=== PATIENT | male | born 1995 | race Caucasian/White ===

== ENCOUNTER 2018-11-14 17:39 | Emergency (ER) | payer OTHER, SELFPAY ==
[2018-11-14 17:51] VITALS: BP 119/74; PULSE 70; RESP 14; TEMP 36.7; O2SAT 99; BMI 26.9
--- NOTE | 2018-11-14 17:57 | DI.RAD.S_ITS ---
PROCEDURE: XR HAND RT MIN 3V INDICATIONS: pain after hitting weight bench. TECHNIQUE: 3 views of the hand(s) acquired. COMPARISON: [facility], , HAND 2V RIGHT, 02/25/2015, 0:37. FINDINGS: Bones: There is a small bony fragment adjacent to the proximal 5th metacarpal.. Carpal bones are normally aligned. No suspicious bony lesions. Soft tissues: No suspicious soft tissue calcifications. IMPRESSION: Small age-indeterminate fracture fragment adjacent to the proximal 5th metacarpal. Dictated by: Lyle Schmitt M.D. on 11/14/2018 at 18:10 Approved by: Lyle Schmitt M.D. on 11/14/2018 at 18:11
[2018-11-14] MEDS: KETOROLAC 60 MG/2 ML VIAL IM (18:14)
[2018-11-14 19:41] VITALS: BP 135/91; PULSE 61; RESP 15; O2SAT 97
--- NOTE | 2018-11-14 20:41 | ED.UPPEXIN ---
HPI - Extremity Injury (Upper) <ZAINA Gallegos - Last Filed: 11/14/18 20:46> General Chief Complaint: Extremity Injury, Upper Stated Complaint: RT HAND INJURY Time Seen by Provider: 11/14/18 18:08 Source: patient Mode of arrival: ambulatory Limitations: no limitations History of Present Illness HPI narrative: The patient is a 23-year-old male nonsmoker presents with his friends for chief complaint of a hand injury on his right hand. He states he broke his right hand several years ago, and he is concerned that he broke it again. He states he hit his hand on a weight rack. He has applied ice. He has not taken anything for the pain. He states this occurred earlier today. Related Data Home Medications Medication Instructions Recorded Confirmed ibuprofen 200 mg PO Q6H PRN 11/14/18 11/14/18 Allergies Allergy/AdvReac Type Severity Reaction Status Date / Time No Known Drug Allergies Allergy Verified 11/14/18 17:54 Review of Systems <ZAINA Gallegos - Last Filed: 11/14/18 20:46> Review of Systems GENERAL: Denies chills, fatigue, malaise, fever, sweats. HEENT: Denies sinus pain, ear pain, sore throat, difficulty swallowing, dizziness. RESPIRATORY: Denies dyspnea, cough, wheezing, hemoptysis, sputum. : Denies dysuria, frequency, incontinence, hematuria, urinary retention. MUSCULOSKELETAL: See HPI SKIN: Denies rash, skin lesions, or other NEUROLOGIC: Denies weakness, headache, numbness, change in speech, confusion, seizures, incoordination. PSYCHIATRIC: No concerning psychosocial issues. 12 point review of systems is negative except for those stated above PFSH <ZAINA Gallegos - Last Filed: 11/14/18 20:46> Medical History Right hand fracture (Acute) Social History Smoking Status: Never smoker Social History Smoking Status: Never smoker Exam <ZAINA Gallegos - Last Filed: 11/14/18 20:46> Narrative Exam Narrative: GENERAL: This is a well-nourished, well-developed patient, in mild distress. HEAD: Atraumatic. Normocephalic. No temporal or scalp tenderness. EYES: Pupils equal round and reactive. Extraocular motions intact. No scleral icterus. No injection or drainage. ENT: Nose without bleeding, purulent drainage or septal hematoma. Throat without erythema, tonsillar hypertrophy or exudate. Uvula midline. Airway patent. NECK: Trachea midline. No JVD or lymphadenopathy. Supple, nontender, no meningeal signs. CARDIOVASCULAR: Regular rate and rhythm RESPIRATORY: No cough. No increased respiratory effort. No accessory muscle use. EXTREMITIES: Pain to palpation at the base of the right 5th digit. Slight swelling noted. Positive radial pulse right hand. Capillary refill less than 2 seconds all fingers right hand. NEURO: AOx3. SKIN: No abrasion, laceration noted right hand Initial Vital Signs Initial Vital Signs: Vital Signs Temperature 98.1 F 11/14/18 17:51 Pulse Rate 70 11/14/18 17:51 Respiratory Rate 14 11/14/18 17:51 Blood Pressure 119/74 11/14/18 17:51 Pulse Oximetry 99 11/14/18 17:51 <Hipolito Bianchi DO - Last Filed: 11/15/18 00:09> Initial Vital Signs Initial Vital Signs: Vital Signs Temperature 98.1 F 11/14/18 17:51 Pulse Rate 70 11/14/18 17:51 Respiratory Rate 14 11/14/18 17:51 Blood Pressure 119/74 11/14/18 17:51 Pulse Oximetry 99 11/14/18 17:51 Procedures <ZAINA Gallegos - Last Filed: 11/14/18 20:46> Orthopedic Splinting/Casting Injury #1: Side: right Upper Extremity Injury Location: hand Upper Extremity Immobilizer: volar splint (Lateral) and Jovany wrap Post splinting neuro exam: intact Post splinting vascular exam: intact Placed by: Nursing Course <ZAINA Gallegos - Last Filed: 11/14/18 20:46> Orders Ordered: ED Orders 11/14/18 17:57 XR hand RT min 3V Stat Discontinued Medications Ketorolac Tromethamine (Toradol) 60 mg IM NOW ONE Stop: 11/14/18 18:11 Last Admin: 11/14/18 18:14 Dose: 60 mg Vital Signs - 8 hr 11/14/18 17:51 11/14/18 19:41 Temperature 98.1 F Pulse Rate 70 61 Respiratory Rate 14 15 Blood Pressure 119/74 Blood Pressure [Left Arm] 135/91 H Pulse Oximetry 99 97 <Hipolito Bianchi DO - Last Filed: 11/15/18 00:09> Orders Ordered: ED Orders 11/14/18 17:57 XR hand RT min 3V Stat Discontinued Medications Ketorolac Tromethamine (Toradol) 60 mg IM NOW ONE Stop: 11/14/18 18:11 Last Admin: 11/14/18 18:14 Dose: 60 mg Vital Signs - 8 hr 11/14/18 17:51 11/14/18 19:41 Temperature 98.1 F Pulse Rate 70 61 Respiratory Rate 14 15 Blood Pressure 119/74 Blood Pressure [Left Arm] 135/91 H Pulse Oximetry 99 97 MDM - Extremity Injury (Upper) <ZAINA Gallegos - Last Filed: 11/14/18 20:46> Imaging Data Right hand x-ray: Radiologist's impression: [address] [address] XRay Report Signed Patient: Sally Trevizo#: [id number] : 1995Acct:[id number] Age/Sex: 23 / MDate of Service: 11/14/18 Loc: ED Accession Number: [id number] Procedure: XR hand RT min 3V Ordering Provider: Hipolito Bianchi D.O. PROCEDURE: XR HAND RT MIN 3V INDICATIONS: pain after hitting weight bench. TECHNIQUE: 3 views of the hand(s) acquired. COMPARISON: [facility], , HAND 2V RIGHT, 02/25/2015, 0:37. FINDINGS: Bones: There is a small bony fragment adjacent to the proximal 5th metacarpal.. Carpal bones are normally aligned. No suspicious bony lesions. Soft tissues: No suspicious soft tissue calcifications. IMPRESSION: Small age-indeterminate fracture fragment adjacent to the proximal 5th metacarpal. Dictated by: Lyle Schmitt M.D. on 11/14/2018 at 18:10 Approved by: Lyle Schmitt M.D. on 11/14/2018 at 18:11 MDM Narrative Medical decision making narrative: The patient is a 23-year-old male who presents with a chief complaint of right hand pain after hitting a weight bench. He is neurovascularly intact. Does have a history of a fracture on that hand. X-ray shows a adjacent to the proximal 5th metacarpal. This is not where his previous fracture was that was at the 4th digit and angulated with no chip. This would like to treated as a new fracture given his recent injury. He was placed in a lateral volar splint. Discussed at length follow up with his primary care provider as well as [facility]. Discussed rest ice compression elevation as well as [id number] pain medications as needed and able. Patient has no questions or concerns upon discharge. Did discuss come back to ER for any acute concerns such as decreased circulation to fingers. Discharge Plan Departure Patient Disposition: Home Clinical Impression: Closed fracture of base of fifth metacarpal bone Qualifiers: Encounter type: initial encounter Fracture alignment: nondisplaced Laterality: right Qualified Code(s): S62.346A - Nondisplaced fracture of base of fifth metacarpal bone, right hand, initial encounter for closed fracture Discharge Date/Time: 11/14/18 20:15 Interventions: ED Discharge Assessment Last Done: 11/14/18 20:15 Instructions: How To Perform RICE (Rest, Ice, Compress, Elevate), Hand Fracture Activity Restrictions/Additional Instructions: Unfortunately you have a small fracture at the base of your 5th finger. We have placed him in a splint. Please use rest ice compression elevation as well as [id number] medications as needed. Please follow-up with [facility]. Please come back to emergency department for any acute concerns. Prescriptions: No Action ibuprofen 200 mg Capsule 200 mg PO Q6H PRN (Reason: Pain (Scale Score 1-3)) RF: 0 Referrals: [facility] [Provider Group] <Hipolito Bianchi DO - Last Filed: 11/15/18 00:09> Cosign ED Attending Deisyature Attestation: Patient received in sign-out from other provider at the end of their shift. I have performed an independent history and physical and have no significant additional findings.
--- NOTE | 2018-11-14 20:46 | ED_ITS ---
HPI - Extremity Injury (Upper) <ZAINA Gallegos - Last Filed: 11/14/18 20:46> General Chief Complaint: Extremity Injury, Upper Stated Complaint: RT HAND INJURY Time Seen by Provider: 11/14/18 18:08 Source: patient Mode of arrival: ambulatory Limitations: no limitations History of Present Illness HPI narrative: The patient is a 23-year-old male nonsmoker presents with his friends for chief complaint of a hand injury on his right hand. He states he broke his right hand several years ago, and he is concerned that he broke it again. He states he hit his hand on a weight rack. He has applied ice. He has not taken anything for the pain. He states this occurred earlier today. Related Data Home Medications Medication Instructions Recorded Confirmed ibuprofen 200 mg PO Q6H PRN 11/14/18 11/14/18 Allergies Allergy/AdvReac Type Severity Reaction Status Date / Time No Known Drug Allergies Allergy Verified 11/14/18 17:54 Review of Systems <ZAINA Gallegos - Last Filed: 11/14/18 20:46> Review of Systems GENERAL: Denies chills, fatigue, malaise, fever, sweats. HEENT: Denies sinus pain, ear pain, sore throat, difficulty swallowing, dizziness. RESPIRATORY: Denies dyspnea, cough, wheezing, hemoptysis, sputum. : Denies dysuria, frequency, incontinence, hematuria, urinary retention. MUSCULOSKELETAL: See HPI SKIN: Denies rash, skin lesions, or other NEUROLOGIC: Denies weakness, headache, numbness, change in speech, confusion, seizures, incoordination. PSYCHIATRIC: No concerning psychosocial issues. 12 point review of systems is negative except for those stated above PFSH <ZAINA Gallegos - Last Filed: 11/14/18 20:46> Medical History Right hand fracture (Acute) Social History Smoking Status: Never smoker Social History Smoking Status: Never smoker Exam <ZAINA Gallegos - Last Filed: 11/14/18 20:46> Narrative Exam Narrative: GENERAL: This is a well-nourished, well-developed patient, in mild distress. HEAD: Atraumatic. Normocephalic. No temporal or scalp tenderness. EYES: Pupils equal round and reactive. Extraocular motions intact. No scleral icterus. No injection or drainage. ENT: Nose without bleeding, purulent drainage or septal hematoma. Throat without erythema, tonsillar hypertrophy or exudate. Uvula midline. Airway patent. NECK: Trachea midline. No JVD or lymphadenopathy. Supple, nontender, no meningeal signs. CARDIOVASCULAR: Regular rate and rhythm RESPIRATORY: No cough. No increased respiratory effort. No accessory muscle use. EXTREMITIES: Pain to palpation at the base of the right 5th digit. Slight swelling noted. Positive radial pulse right hand. Capillary refill less than 2 seconds all fingers right hand. NEURO: AOx3. SKIN: No abrasion, laceration noted right hand Initial Vital Signs Initial Vital Signs: Vital Signs Temperature 98.1 F 11/14/18 17:51 Pulse Rate 70 11/14/18 17:51 Respiratory Rate 14 11/14/18 17:51 Blood Pressure 119/74 11/14/18 17:51 Pulse Oximetry 99 11/14/18 17:51 <Hipolito Bianchi DO - Last Filed: 11/15/18 00:09> Initial Vital Signs Initial Vital Signs: Vital Signs Temperature 98.1 F 11/14/18 17:51 Pulse Rate 70 11/14/18 17:51 Respiratory Rate 14 11/14/18 17:51 Blood Pressure 119/74 11/14/18 17:51 Pulse Oximetry 99 11/14/18 17:51 Procedures <ZAINA Gallegos - Last Filed: 11/14/18 20:46> Orthopedic Splinting/Casting Injury #1: Side: right Upper Extremity Injury Location: hand Upper Extremity Immobilizer: volar splint (Lateral) and Jovany wrap Post splinting neuro exam: intact Post splinting vascular exam: intact Placed by: Nursing Course <ZAINA Gallegos - Last Filed: 11/14/18 20:46> Orders Ordered: ED Orders 11/14/18 17:57 XR hand RT min 3V Stat Discontinued Medications Ketorolac Tromethamine (Toradol) 60 mg IM NOW ONE Stop: 11/14/18 18:11 Last Admin: 11/14/18 18:14 Dose: 60 mg Vital Signs - 8 hr 11/14/18 17:51 11/14/18 19:41 Temperature 98.1 F Pulse Rate 70 61 Respiratory Rate 14 15 Blood Pressure 119/74 Blood Pressure [Left Arm] 135/91 H Pulse Oximetry 99 97 <Hipolito Bianchi DO - Last Filed: 11/15/18 00:09> Orders Ordered: ED Orders 11/14/18 17:57 XR hand RT min 3V Stat Discontinued Medications Ketorolac Tromethamine (Toradol) 60 mg IM NOW ONE Stop: 11/14/18 18:11 Last Admin: 11/14/18 18:14 Dose: 60 mg Vital Signs - 8 hr 11/14/18 17:51 11/14/18 19:41 Temperature 98.1 F Pulse Rate 70 61 Respiratory Rate 14 15 Blood Pressure 119/74 Blood Pressure [Left Arm] 135/91 H Pulse Oximetry 99 97 MDM - Extremity Injury (Upper) <ZAINA Gallegos - Last Filed: 11/14/18 20:46> Imaging Data Right hand x-ray: Radiologist's impression: [address] [address] XRay Report Signed Patient: Sally Trevizo#: [id number] : 1995Acct:[id number] Age/Sex: 23 / MDate of Service: 11/14/18 Loc: ED Accession Number: [id number] Procedure: XR hand RT min 3V Ordering Provider: Hipolito Bianchi D.O. PROCEDURE: XR HAND RT MIN 3V INDICATIONS: pain after hitting weight bench. TECHNIQUE: 3 views of the hand(s) acquired. COMPARISON: [facility], , HAND 2V RIGHT, 02/25/2015, 0:37. FINDINGS: Bones: There is a small bony fragment adjacent to the proximal 5th metacarpal.. Carpal bones are normally aligned. No suspicious bony lesions. Soft tissues: No suspicious soft tissue calcifications. IMPRESSION: Small age-indeterminate fracture fragment adjacent to the proximal 5th metacarpal. Dictated by: Lyle Schmitt M.D. on 11/14/2018 at 18:10 Approved by: Lyle Schmitt M.D. on 11/14/2018 at 18:11 MDM Narrative Medical decision making narrative: The patient is a 23-year-old male who presents with a chief complaint of right hand pain after hitting a weight bench. He is neurovascularly intact. Does have a history of a fracture on that hand. X-ray shows a adjacent to the proximal 5th metacarpal. This is not where his previous fracture was that was at the 4th digit and angulated with no chip. This would like to treated as a new fracture given his recent injury. He was placed in a lateral volar splint. Discussed at length follow up with his primary care provider as well as [facility]. Discussed rest ice compression elevation as well as [id number] pain medications as needed and able. Patient has no questions or concerns upon discharge. Did discuss come back to ER for any acute concerns such as decreased circulation to fingers. Discharge Plan Departure Patient Disposition: Home Clinical Impression: Closed fracture of base of fifth metacarpal bone Qualifiers: Encounter type: initial encounter Fracture alignment: nondisplaced Laterality: right Qualified Code(s): S62.346A - Nondisplaced fracture of base of fifth metacarpal bone, right hand, initial encounter for closed fracture Discharge Date/Time: 11/14/18 20:15 Interventions: ED Discharge Assessment Last Done: 11/14/18 20:15 Instructions: How To Perform RICE (Rest, Ice, Compress, Elevate), Hand Fracture Activity Restrictions/Additional Instructions: Unfortunately you have a small fracture at the base of your 5th finger. We have placed him in a splint. Please use rest ice compression elevation as well as [id number] medica tions as needed. Please follow-up with [facility]. Please come back to emergency department for any acute concerns. Prescriptions: No Action ibuprofen 200 mg Capsule 200 mg PO Q6H PRN (Reason: Pain (Scale Score 1-3)) RF: 0 Referrals: [facility] [Provider Group] <Hipolito Bianchi DO - Last Filed: 11/15/18 00:09> Cosign ED Attending Cosderikature Attestation: Patient received in sign-out from other provider at the end of their shift. I have performed an independent history and physical and have no significant additional findings.
== END 2018-11-14 20:15 | disposition home or self-care (01) ==
PROVIDERS: Emergency Provider Nurse Practitioner Family
DX: S62.346A Nondisplaced fracture of base of fifth metacarpal bone, right hand, initial encounter for closed fracture (principal); W22.8XXA Striking against or struck by other objects, initial encounter; Y93.B3 Activity, free weights
CPT/HCPCS: 29125; 73130; 96372; 99282; 99283; J1885